=== PATIENT | female | born 1960 | race Caucasian/White ===

== ENCOUNTER 2018-07-05 19:37 | Emergency (ER) | payer OTHER ==
[~2018-07-05] VITALS: Ht 162.6 cm; Wt 54.4 kg
[2018-07-05] MEDS ORDERED: OMEPRAZOLE 20 M20 M1 PO (19:49)
[2018-07-05 21:24] VITALS: BP 127/54
== END 2018-07-05 21:30 | disposition home or self-care (01) ==
LOC: ER 19:37
DX: S09.90XA Unspecified injury of head, initial encounter (principal); W00.0XXA Fall on same level due to ice and snow, initial encounter; Y92.89 Other specified places as the place of occurrence of the external cause; Y93.01 Activity, walking, marching and hiking; Y99.8 Other external cause status